=== PATIENT | female | born 1945 | race Caucasian/White ===

== ENCOUNTER 2020-05-16 20:19 | Inpatient (IN) | payer MEDICARE, OTHER ==
[~2020-05-16] VITALS: Ht 170.2 cm; Wt 79.3 kg
--- NOTE | 2020-05-16 20:40 | ED General ---
General Stated Complaint: COVID+,DEHYDRATED,VOMITING,DIZZY History of Present Illness Date Seen by Provider: May 16, 2020 Time Seen by Provider: 20:37 Initial Comments 74-year-old female presents with generalized weakness and malaise and some chest tightness with shortness of air for the past couple days. States she was diagnosed with COVID-19, 4 days ago at an urgent care clinic, but was not placed on any medication and advised to follow-up if she got worse. She does say she has been taking vitamin C, vitamin D and zinc supplements. Denies history of heart or lung problems. Allergies and Home Medications Allergies Coded Allergies: No Known Drug Allergies (Unverified , 05/16/20) Patient Home Medication List Home Medication List Reviewed: Yes Review of Systems Review of Systems Constitutional: No chills, No fever; malaise, weakness Respiratory: No cough; short of breath Cardiovascular: chest pain (tightness) Gastrointestinal: No abdominal pain; loss of appetite, nausea; No vomiting Musculoskeletal: No back pain, No neck pain Psychiatric/Neurological: Denies Headache, Denies Numbness, Denies Paresthesia, Denies Seizure Past Swgunch-Kmkxuo-Doqqnw Hx Past Med/Social Hx: Reviewed Nursing Past Med/Soc Hx Physical Exam Vital Signs Vital Signs - First Documented 05/16/20 20:28 Temp 36.6 Pulse 76 Resp 20 B/P (MAP) 176/71 (106) Pulse Ox 88 O2 Delivery Room Air Capillary Refill : Height, Weight, BMI Height: '" Weight: lbs. oz. kg; BMI Method: General Appearance: No Apparent Distress, WD/WN HEENT: PERRL/EOMI, Normal ENT Inspection Neck: Non Tender, Supple Respiratory: Chest Non Tender, Lungs Clear, Normal Breath Sounds, No Accessory Muscle Use, No Respiratory Distress Cardiovascular: Regular Rate, Rhythm, No Edema, Normal Peripheral Pulses Gastrointestinal: Non Tender, Soft Back: Normal Inspection, No CVA Tenderness Extremity: Normal Capillary Refill, Non Tender Neurologic/Psychiatric: Alert, Oriented x3, No Motor/Sensory Deficits, Normal Mood/Affect Focused Exam Lactate Level 05/16/20 21:01: Lactic Acid Level Laboratory Tests Test 05/16/20 21:01 Progress/Results/Core Measures Suspected Sepsis SIRS Temperature: Pulse: Respiratory Rate: Laboratory Tests 05/16/20 20:37: White Blood Count 8.0 Blood Pressure / Mean: 05/16/20 21:01: Laboratory Tests 05/16/20 20:37: Creatinine 0.88, Platelet Count 157, Total Bilirubin 1.0 Results/Orders Lab Results Laboratory Tests Test 05/16/20 20:37 05/16/20 21:01 Range/Units White Blood Count 8.0 4.3-11.0 10^3/uL Red Blood Count 4.77 4.35-5.85 10^6/uL Hemoglobin 13.4 11.5-16.0 G/DL Hematocrit 40 35-52 % Mean Corpuscular Volume 83 80-99 FL Mean Corpuscular Hemoglobin 28 25-34 PG Mean Corpuscular Hemoglobin Concent 34 32-36 G/DL Red Cell Distribution Width 13.4 10.0-14.5 % Platelet Count 157 130-400 10^3/uL Mean Platelet Volume 10.7 H 7.4-10.4 FL Immature Granulocyte % (Auto) 0 % Neutrophils (%) (Auto) 82 H 42-75 % Lymphocytes (%) (Auto) 14 12-44 % Monocytes (%) (Auto) 4 0-12 % Eosinophils (%) (Auto) 0 0-10 % Basophils (%) (Auto) 0 0-10 % Neutrophils # (Auto) 6.6 1.8-7.8 X 10^3 Lymphocytes # (Auto) 1.1 1.0-4.0 X 10^3 Monocytes # (Auto) 0.3 0.0-1.0 X 10^3 Eosinophils # (Auto) 0.0 0.0-0.3 10^3/uL Basophils # (Auto) 0.0 0.0-0.1 10^3/uL Immature Granulocyte # (Auto) 0.0 0.0-0.1 10^3/uL D-Dimer 1.26 H 0.00-0.49 UG/ML Sodium Level 132 L 135-145 MMOL/L Potassium Level 4.0 3.6-5.0 MMOL/L Chloride Level 95 L 98-107 MMOL/L Carbon Dioxide Level 22 21-32 MMOL/L Anion Gap 15 H 5-14 MMOL/L Blood Urea Nitrogen 14 7-18 MG/DL Creatinine 0.88 0.60-1.30 MG/DL Estimat Glomerular Filtration Rate > 60 BUN/Creatinine Ratio 16 Glucose Level 151 H 70-105 MG/DL Calcium Level 9.0 8.5-10.1 MG/DL Corrected Calcium 9.0 8.5-10.1 MG/DL Total Bilirubin 1.0 0.1-1.0 MG/DL Aspartate Amino Transf (AST/SGOT) 18 5-34 U/L Alanine Aminotransferase (ALT/SGPT) 7 0-55 U/L Alkaline Phosphatase 60 40-136 U/L Troponin I < 0.30 <0.30 NG/ML C-Reactive Protein 19.46 H <0.50 MG/DL Total Protein 7.3 6.4-8.2 GM/DL Albumin 4.0 3.2-4.5 GM/DL My Orders Orders - RICHARDVENSTLINDSAY RAIN DO Ed Iv/Invasive Line Start (05/16/20 20:40) Cbc With Automated Diff (05/16/20 20:40) Comprehensive Metabolic Panel (05/16/20 20:40) Fibrin Degradation Products (05/16/20 20:40) Crp Fs (05/16/20 20:40) Lactic Acid Analyzer (05/16/20 20:40) Troponin I Fs (05/16/20 20:40) Procalcitonin (Pct) (05/16/20 20:40) Chest 1 View Ap/Pa Only (05/16/20 20:40) Dexamethasone Injection (Decadron Inje (05/16/20 20:45) Ekg Tracing (05/16/20 20:52) Covid-19 External Lab Results (05/16/20 21:11) Aspirin Chewable Tablet (Baby Aspirin Ch (05/16/20 21:30) Azithromycin Injection (Zithromax Inject (05/16/20 21:30) Medications Given in ED Current Medications Medications Dose Ordered Sig/Wilfred Route Start Time Stop Time Status Last Admin Dose Admin Dexamethasone Sodium Phosphate 10 mg ONCE ONCE IV 05/16/20 20:45 05/16/20 20:46 DC 05/16/20 21:06 10 MG Vital Signs/I&O 05/16/20 20:28 Temp 36.6 Pulse 76 Resp 20 B/P (MAP) 176/71 (106) Pulse Ox 88 O2 Delivery Room Air Capillary Refill : ECG Initial ECG Impression Date: May 16, 2020 Initial ECG Impression Time: 20:40 Initial ECG Rate: 70 Initial ECG Rhythm: Normal Sinus Initial ECG Impression: Normal Initial ECG Comparisson: No Previous ECG Available Comment old inferior infarct Diagnostic Imaging Comments INDICATION: Hypoxia, shortness of air, positive Covid. FINDINGS: Frontal view of the chest demonstrates bibasilar infiltrates. The heart size and vascularity are normal. There are no pleural effusions. IMPRESSION: There are bibasilar infiltrates, right greater than left. Dictated by: Dictated on workstation # [id number] Dict: 05/16/202053 Trans: 05/16/202104 [facility] [id number] Interpreted by: MARIBEL LOPEZ MD Electronically signed by: MARIBEL LOPEZ MD 05/16/202104 Departure Communication (Admissions) Time/Spoke to Admitting Phy: 21:[address] Mcneal and she accepts Impression Primary Impression: Hypoxia Additional Impression: Pneumonia due to COVID-19 virus Disposition: 30 STILL A PATIENT Condition: Stable Admissions Decision to Admit Reason: Admit from ER (General) Decision to Admit/Date: May 16, 2020 Time/Decision to Admit Time: 21:00 Departure-Patient Inst. Referrals: VERA MCNEAL MD (PCP/Family) Primary Care Physician LINDSAY HUTCHINSON DO May 16, 2020 20:40
[2020-05-16 20:49] LABS: HEMATOCRIT 40 % (35-52); HEMOGLOBIN 13.4 G/DL (11.5-16.0); MEAN CORPUSCULAR HEMOGLOBIN 28 PG (25-34); MEAN CORPUSCULAR VOLUME 83 FL (80-99)
[2020-05-16 20:51] LABS: BASOPHILS % (AUTO) 0 % (0-10); EOSINOPHILS % (AUTO) 0 % (0-10); LYMPHOCYTES # (AUTO) 1.1 X 10^3 (1.0-4.0); LYMPHOCYTES % (AUTO) 14 % (12-44); MEAN CORPUSCULAR HGB CONC 34 G/DL (32-36); MEAN PLATELET VOLUME 10.7 FL (7.4-10.4); MONOCYTES # (AUTO) 0.3 X 10^3 (0.0-1.0); MONOCYTES % (AUTO) 4 % (0-12); NEUTROPHILS # (AUTO) 6.6 X 10^3 (1.8-7.8); NEUTROPHILS % (AUTO) 82 % (42-75); PLATELET COUNT 157 10^3/uL (130-400)
--- NOTE | 2020-05-16 21:02 | Diagnostic Imaging Report ---
INDICATION: Hypoxia, shortness of air, positive Covid. FINDINGS: Frontal view of the chest demonstrates bibasilar infiltrates. The heart size and vascularity are normal. There are no pleural effusions. IMPRESSION: There are bibasilar infiltrates, right greater than left. Dictated by: Dictated on workstation # [id number]
[2020-05-16 21:07] LABS: BUN/CREATININE RATIO 16; CARBON DIOXIDE 22 MMOL/L (21-32); CHLORIDE 95 MMOL/L (98-107); CREATININE SERUM 0.88 MG/DL (0.60-1.30); GFR ESTIMATED > 60; SODIUM 132 MMOL/L (135-145)
[2020-05-16 21:08] LABS: ALANINE AMINOTRANSFERASE 7 U/L (0-55); ALKALINE PHOSPHATASE 60 U/L (40-136); GLUCOSE 151 MG/DL (70-105); TOTAL PROTEIN 7.3 GM/DL (6.4-8.2)
[2020-05-16] MEDS ORDERED: ASPIRIN 81 MG CHEW (CHILDREN'S ASA) PO ONE (21:30)
[2020-05-16] MEDS ORDERED: AZITHROMYCIN INJECTION 500 MG in NS (IVPB) 250 ML IV ONE (21:30)
[2020-05-16 23:35] VITALS: BP 126/58
[2020-05-17] VITALS (7 sets, daily range): BP systolic 139–176; BP diastolic 66–78
[2020-05-17] MEDS ORDERED: RT-ALBUTEROL INHALER HFA (VENTOLIN HFA) 18 GM IH PRN ×2 (03:30→17:00)
[2020-05-17 06:32] LABS: BASOPHILS % (AUTO) 0 % (0-10); EOSINOPHILS % (AUTO) 0 % (0-10); HEMATOCRIT 40 % (35-52); HEMOGLOBIN 13.5 g/dL (11.5-16.0); LYMPHOCYTES # (AUTO) 0.8 10^3/uL (1.0-4.0); LYMPHOCYTES % (AUTO) 16 % (12-44); MEAN CORPUSCULAR HEMOGLOBIN 28 pg (25-34); MEAN CORPUSCULAR HGB CONC 34 g/dL (32-36); MEAN CORPUSCULAR VOLUME 84 fL (80-99); MEAN PLATELET VOLUME 10.8 fL (9.0-12.2); MONOCYTES # (AUTO) 0.1 10^3/uL (0.0-1.0); MONOCYTES % (AUTO) 2 % (0-12); NEUTROPHILS % (AUTO) 82 % (42-75); PLATELET COUNT 139 10^3/uL (130-400); WHITE BLOOD COUNT 4.9 10^3/uL (4.3-11.0)
[2020-05-17 06:46] LABS: ALBUMIN 3.7 GM/DL (3.2-4.5); POTASSIUM 4.3 MMOL/L (3.6-5.0)
[2020-05-17 06:47] LABS: CALCIUM 9.2 MG/DL (8.5-10.1)
[2020-05-17 06:48] LABS: TOTAL PROTEIN 7.4 GM/DL (6.4-8.2)
[2020-05-17 06:50] LABS: BILIRUBIN,TOTAL 0.9 MG/DL (0.1-1.0)
[2020-05-17 06:52] LABS: CREATININE SERUM 0.92 MG/DL (0.60-1.30)
[2020-05-17] MEDS: ASPIRIN E.C. 325 MG (ECOTRIN) TABLET PO SCH (08:46)
[2020-05-17] MEDS ORDERED: REMDESIVIR INJ 200 MG in NS (IVPB) 210 ML IV NR (11:00)
[2020-05-17] MEDS ORDERED: CALC-250 PO (14:22)
[2020-05-17] MEDS ORDERED: LISI-556 PO (14:22)
[2020-05-17] MEDS ORDERED: ASCO500C17 PO (14:22)
[2020-05-17] MEDS ORDERED: ZINC50TA51 PO (14:22)
[2020-05-17] MEDS ORDERED: SIMV40TA25 PO (14:22)
--- NOTE | 2020-05-17 14:23 | NUR ---
I SPOKE WITH THE PATIENT ON THE ROOM PHONE AND WENT THROUGH THE EXTERNAL MED HISTORY TO COMPLETE THIS MED REC. OTC: TYLENOL ZINC VITAMIN C VITAMIN D
[2020-05-17] MEDS ORDERED: ACET-2267 PO (14:24)
--- NOTE | 2020-05-17 14:38 | NUR ---
"RD ASSESSMENT PMHx: HTN; PT INTERACTION: Received dietary consult for MST score. Note pt is currently in COVID isolation per chart review. Note all diet information for nutrition consult is per Mariah RN or per chart review. Mariah states current appetite appears good. Note no meals have been recorded per chart review. Mariah states no issues with n/v/c/d that she is aware of, and that her last BM was 05/15. Note pt not currently on bowel regimen per chart review. Note unable to determine recent wt hx, per chart review. Note unable to complete visual assessment d/t isolation precautions. Given PO intake and wt hx, it is difficult to determine if pt meets criteria for malnutrition per ASPEN guidelines. Est. kcal needs: 8121-8908 kcal | 20-25 kcal/kg Est. Pro needs: 63-79 g Pro | 0.8-1.0 g Pro/kg PES STATEMENT: Unable to determine nutrition diagnosis at this time. INTERVENTION: Continue with current diet order of Regular diet. Will continue to follow and reassess as pt needs, intake, and status change. Nadine ANTONIO MS RD LD [phone] cell"
[2020-05-17] MEDS: RT-ALBUTEROL INHALER HFA (VENTOLIN HFA) 18 GM IH SCH (15:15)
[2020-05-17] MEDS: AZITHROMYCIN 500 MG/NS 250 ML IVPB IV SCH ×2 (20:07)
--- NOTE | 2020-05-17 20:46 | History & Physical ---
HPI History of Present Illness: 74 yo F that presented with increasing shortness of breath and fatigue. States that her had symptoms about 10 days ago and tested positive. States that she started feeling ill last week and came in and tested positive on friday. Denies any fever or chills. Started having shortness of breath on Friday that progressed. She has still been eating and drinking. No loss of taste or smell. She would like to go home today but she is still requiring oxygen. Source: patient Exam Limitations: no limitations Date seen by provider: May 17, 2020 Time Seen by Provider: 11:30 Attending Physician Vera George MD PCP Vera George MD Consult Date of Admission May 16, 2020 at 21:20 Home Medications Home Medications Reviewed patient Home Medication Reconciliation performed by pharmacy medication reconciliations document management technician and/or nursing. Patients Allergies have been reviewed. Allergies Coded Allergies: No Known Drug Allergies (Unverified , 05/16/20) [facility]-Gxcccb-Qdeonm Hx Patient Social History Living Status: Lives at home with , Independent Smoking Status: Never a Smoker Have you traveled recently?: No Immunizations Up To Date Date of Influenza Vaccine: Feb 05, 2021 Past Medical History HTN HLD Family Medical History Significant Family History: No Pertinent Family Hx Review of Systems (CHC) Constitutional: No chills, No fever; weakness EENTM: no symptoms reported; No mouth pain, No mouth swelling, No nose congestion Respiratory: cough, dyspnea on exertion, short of breath Cardiovascular: no symptoms reported; No chest pain, No edema, No palpitations Gastrointestinal: no symptoms reported; No abdominal pain, No constipation, No diarrhea, No nausea, No vomiting Genitourinary: no symptoms reported; No dysuria, No frequency, No hematuria : No Musculoskeletal: no symptoms reported; No back pain, No joint pain, No muscle pain Skin: no symptoms reported; No lesions, No rash Psychiatric/Neurological: Weakness Reviewed Test Results Reviewed Test Results Lab Laboratory Tests Test 05/16/20 20:37 05/16/20 21:01 05/17/20 06:10 Range/Units White Blood Count 8.0 4.9 4.3-11.0 10^3/uL Red Blood Count 4.77 4.80 3.80-5.11 10^6/uL Hemoglobin 13.4 13.5 11.5-16.0 g/dL Hematocrit 40 40 35-52 % Mean Corpuscular Volume 83 84 80-99 fL Mean Corpuscular Hemoglobin 28 28 25-34 pg Mean Corpuscular Hemoglobin Concent 34 34 32-36 g/dL Red Cell Distribution Width 13.4 13.3 10.0-14.5 % Platelet Count 157 139 130-400 10^3/uL Mean Platelet Volume 10.7 H 10.8 9.0-12.2 fL Immature Granulocyte % (Auto) 0 0 % Neutrophils (%) (Auto) 82 H 82 H 42-75 % Lymphocytes (%) (Auto) 14 16 12-44 % Monocytes (%) (Auto) 4 2 0-12 % Eosinophils (%) (Auto) 0 0 0-10 % Basophils (%) (Auto) 0 0 0-10 % Neutrophils # (Auto) 6.6 4.0 1.8-7.8 10^3/uL Lymphocytes # (Auto) 1.1 0.8 L 1.0-4.0 10^3/uL Monocytes # (Auto) 0.3 0.1 0.0-1.0 10^3/uL Eosinophils # (Auto) 0.0 0.0 0.0-0.3 10^3/uL Basophils # (Auto) 0.0 0.0 0.0-0.1 10^3/uL Immature Granulocyte # (Auto) 0.0 0.0 0.0-0.1 10^3/uL D-Dimer 1.26 H 0.00-0.49 UG/ML Sodium Level 132 L 136 135-145 MMOL/L Potassium Level 4.0 4.3 3.6-5.0 MMOL/L Chloride Level 95 L 101 98-107 MMOL/L Carbon Dioxide Level 22 24 21-32 MMOL/L Anion Gap 15 H 11 5-14 MMOL/L Blood Urea Nitrogen 14 18 7-18 MG/DL Creatinine 0.88 0.92 0.60-1.30 MG/DL Estimat Glomerular Filtration Rate > 60 60 BUN/Creatinine Ratio 16 20 Glucose Level 151 H 202 H 70-105 MG/DL Calcium Level 9.0 9.2 8.5-10.1 MG/DL Corrected Calcium 9.0 9.4 8.5-10.1 MG/DL Total Bilirubin 1.0 0.9 0.1-1.0 MG/DL Aspartate Amino Transf (AST/SGOT) 18 21 5-34 U/L Alanine Aminotransferase (ALT/SGPT) 7 11 0-55 U/L Alkaline Phosphatase 60 63 40-136 U/L Troponin I < 0.30 <0.30 NG/ML C-Reactive Protein 19.46 H <0.50 MG/DL Total Protein 7.3 7.4 6.4-8.2 GM/DL Albumin 4.0 3.7 3.2-4.5 GM/DL Procalcitonin 0.19 H <0.10 NG/ML Lactic Acid Level 1.05 0.50-2.00 MMOL/L Physical Exam-(CHC) Physical Exam Vital Signs VS - Last 72 Hours, by Label 05/16/20 05/16/20 05/16/20 05/17/20 20:28 22:01 23:35 03:16 Temp 36.6 35.6 Pulse 76 80 62 76 Resp 20 22 18 B/P (MAP) 176/71 (106) 114/56 126/58 (80) Pulse Ox 88 93 97 88 O2 Delivery Room Air Nasal Cannula Nasal Cannula O2 Flow Rate 3.00 3.00 FiO2 21 05/17/20 05/17/20 05/17/20 05/17/20 04:15 08:00 08:32 09:11 Temp 35.6 35.6 Pulse 61 56 Resp 18 20 B/P (MAP) 139/68 (91) 141/66 (91) Pulse Ox 96 94 92 O2 Delivery Nasal Cannula Nasal Cannula Nasal Cannula Nasal Cannula O2 Flow Rate 3.00 3.00 3.00 3.00 05/17/20 05/17/20 05/17/20 05/17/20 12:29 14:06 15:55 19:32 Temp 36.2 36.6 36.4 36.4 Pulse 61 76 65 62 Resp 18 20 20 B/P (MAP) 148/72 (97) 151/78 (102) 148/72 (97) Pulse Ox 94 88 95 94 O2 Delivery Nasal Cannula Nasal Cannula Nasal Cannula O2 Flow Rate 3.00 3.00 3.00 FiO2 21 Capillary Refill : Less Than 3 Seconds General Appearance: WD/WN, no apparent distress HEENT: PERRL/EOMI Neck: non-tender, full range of motion, supple Respiratory: chest non-tender, lungs clear, normal breath sounds, no respiratory distress, no accessory muscle use Cardiovascular: normal peripheral pulses, regular rate, rhythm, no edema, no murmur Gastrointestinal: normal bowel sounds, non tender, soft Extremities: normal range of motion, non-tender, normal inspection, no pedal edema, no calf tenderness, normal capillary refill Neurologic/Psychiatric: health aid II-XII nml as tested, no motor/sensory deficits, alert, normal mood/affect, oriented x 3 Skin: normal color, warm/dry Lymphatic: no adenopathy Assessment/Plan Assessment/Plan Admission Status: Inpatient Order (span 2 midnights) Reason for Inpatient Admission: Requiring supplemental oxygen and close monitoring, high risk for decompensation (1) COVID-19 Status: Acute Assessment & Plan: - Steroids and Anti viral started (2) Hypoxia Status: Acute Assessment & Plan: - MAT protocol, titrate oxygen as tolerated, encouraged IS (3) Elevated d-dimer Status: Acute (4) HTN (hypertension) Status: Chronic Assessment & Plan: - Continue home meds Qualifiers: Qualified Codes: I10 - Essential (primary) hypertension (5) HLD (hyperlipidemia) Status: Chronic Qualifiers: Qualified Codes: E78.5 - Hyperlipidemia, unspecified (6) DVT prophylaxis Status: Acute Assessment & Plan: - Wipsternox Copy Copies To 1: VERA GEORGE MD, HOLLY R MD May 17, 2020 20:46
[2020-05-17] MEDS: SIMvastatin 40 MG (ZOCOR) TAB PO SCH (21:54)
[2020-05-18 00:28] VITALS: BP 131/70
[2020-05-18 03:48] VITALS: BP 136/67
[2020-05-18 06:39] LABS: BASOPHILS % (AUTO) 0 % (0-10); EOSINOPHILS % (AUTO) 0 % (0-10); HEMATOCRIT 36 % (35-52); HEMOGLOBIN 12.2 g/dL (11.5-16.0); LYMPHOCYTES % (AUTO) 11 % (12-44); MEAN CORPUSCULAR HEMOGLOBIN 28 pg (25-34); MEAN CORPUSCULAR HGB CONC 34 g/dL (32-36); MEAN CORPUSCULAR VOLUME 82 fL (80-99); MEAN PLATELET VOLUME 11.3 fL (9.0-12.2); MONOCYTES # (AUTO) 0.4 10^3/uL (0.0-1.0); MONOCYTES % (AUTO) 5 % (0-12); NEUTROPHILS % (AUTO) 84 % (42-75); PLATELET COUNT 177 10^3/uL (130-400); WHITE BLOOD COUNT 8.4 10^3/uL (4.3-11.0)
[2020-05-18 06:52] LABS: CHLORIDE 105 MMOL/L (98-107); POTASSIUM 4.1 MMOL/L (3.6-5.0); SODIUM 139 MMOL/L (135-145)
[2020-05-18 06:53] LABS: CALCIUM 8.7 MG/DL (8.5-10.1); GLUCOSE 173 MG/DL (70-105)
[2020-05-18 06:55] LABS: CARBON DIOXIDE 23 MMOL/L (21-32)
[2020-05-18 06:57] LABS: CREATININE SERUM 0.86 MG/DL (0.60-1.30); GFR ESTIMATED > 60
[2020-05-18 06:58] LABS: BUN/CREATININE RATIO 31
[2020-05-18] MEDS: lisINopril 5 MG (PRINIVIL) TABLET PO SCH (07:59)
[2020-05-18] MEDS: ASPIRIN E.C. 325 MG (ECOTRIN) TABLET PO SCH (07:59)
[2020-05-18 08:00] VITALS: BP 173/77
[2020-05-18] MEDS: RT-ALBUTEROL INHALER HFA (VENTOLIN HFA) 18 GM IH SCH ×3 (10:30→18:50)
[2020-05-18] MEDS: REMDESIVIR INJ 100 MG in NS (IVPB) 230 ML IV SCH (11:43)
[2020-05-18 12:00] VITALS: BP 127/60
--- NOTE | 2020-05-18 13:34 | Physical Therapy Evaluation ---
PT Evaluation-General Medical Diagnosis Admission Date May 16, 2020 at 21:20 Medical Diagnosis: pneumonia secondary to Covid (+) Onset Date: May 15, 2020 Therapy Diagnosis Therapy Diagnosis: debility Precautions Precautions/Isolations: Droplet Isolation, Contact/Enteric Isolation Referral Physician: Ariel Reason for Referral: Evaluation/Treatment Medical History Current History ER secondary to SOA and chest pressure Reviewed History: Yes Social History Home: Single Level Current Living Status: Spouse Prior Prior Level of Function SCALE: Activities may be completed with or without assistive devices. 8-Yrlwdzurdy-daebgpf completes the activity by him/herself with no assistance from a helper. 5-Set-up or Clean-up Assistance-helper sets up or cleans up; patient completes activity. Elwell assists only prior to or following the activity. 4-Supervision or Touching Assistance-helper provides verbal cues and/or touching/steadying and/or contact guard assistance as patient completes activity. Assistance may be provided throughout the activity or intermittently. 3-Partial/Moderate Assistance-helper does LESS THAN HALF the effort. Elwell lifts, holds or supports trunk or limbs, but provides less than half the effort. 2-Substantial/Maximal Assistance-helper does MORE THAN HALF the effort. Elwell lifts or holds trunk or limbs and provides more than half the effort. 8-Sztbgglgx-gjfmst does ALL the effort. Patient does none of the effort to complete the activity. Or, the assistance of 2 or more helpers is required for the patient to complete the activity. If activity was not attempted, code reason: 7-Patient Refused. 9-Not Applicable-not attempted and the patient did not perform the activity before the current illness, exacerbation or injury. 10-Not Attempted due to Environmental Limitations-(lack of equipment, weather restraints, etc.). 88-Not Attempted due to Medical Conditions or Safety Concerns. Bed Mobility: 6 Transfers (B,C,W/C): 6 Gait: 6 Stairs: 6 Indoor Mobility (Ambulation): Independent Stairs: Independent Prior Devices Use: None PT Evaluation-Current Subjective Patient states, "I don't therapy. I'm fine. I had just woken up and was a little unsteady. I'm fine now." Does agree to PT assessment for safety. Objective Patient Orientation: Normal For Age Attachments: Oxygen ROM/Strength ROM Lower Extremities bilateral LE wFL Strength Lower Extremities 4/5 grossly bilateral LE Integumentary/Posture Integumentary refer to nursing notes Bowel Incontinence: No Bladder Incontinence: No Posture WFL Neuromuscular (Tone, Coordination, Reflexes) grossly intact Sensory Vision: Functional Hearing: Functional Sensation Right Lower Extremit: Intact Sensation Left Lower Extremity: Intact Transfers Roll Left to Right (QC): 6 Sit to Lying (QC): 6 Lying to Sitting/Side of Bed(Q: 6 Sit to Stand (QC): 6 Chair/Gfg-ov-Spdes Xfer(QC): 6 Gait Does the Patient Walk?: Yes Mode of Locomotion: Walk Anticipated Mode of Locomotion: Walk Walk 10 feet (QC): 6 Walk 50 ft with 2 Turns(QC): 6 Walk 150 ft (QC): 6 Distance: 150' in room Gait Assistive Device: None Comments/Gait Description patient able to negotiate O2 tubing with ambulation in room Balance Sitting Static: Normal Sitting Dynamic: Normal Standing Static: Normal Standing Dynamic: Normal Picking up an Object (QC): 6 Assessment/Needs 74 y.o. female, is currently at [facility] with all gross motor skills and does not require skilled therapy intervention. Patient voices she is safe and up in room independent prior to PT assessment. Rehab Potential: Fair PT Plan Treatment/Plan Treatment Plan: Discontinue PT, goals met Treatment Duration: May 18, 2020 Frequency: 1 time per week Estimated Hrs Per Day: .25 hour per day Discharge Recommendations Therapy Discharge Recommendati: Home & Family Time/GCodes Time In: 1129 Time Out: 1140 Total Billed Treatment Time: 11 Total Billed Treatment 1 visit EVLowC 11 min BELEM HARPER PT May 18, 2020 13:34
--- NOTE | 2020-05-18 13:45 | Physician Query Clarification ---
"Physician Query-General Query to Physician: History/Risk factors: Covid 19 PNA Clinical Findings: cough, dyspnea on exertion, short of breath, RR 18-22, SOA at Rest per nursing on 3L NC, 02 Sat 88% on RA on admission, Currently trending down to 90% on 3L Treatment: Continuous Supplemental 02, Remdesivir, Albuterol Breathing RX, Dexamethasone Question: What condition best reflects the above clinical scenario? Please document response in the Progress notes or Discharge Summary. 1. Acute Hypoxic Respiratory Failure 2. Hypoxia (as currently documented) 3. Other , with explanation of the clinical findings 4. Clinically undetermined, no explanation for the clinical findings Please remember a lack of response to the above will prompt a phone page by CDI/coding staff In responding to this query, please exercise your independent professional judgment. The purpose of this communication is to more accurately reflect the complexity of your patients condition. The fact that a question is asked does not imply that any particular answer is desired or expected. Thank you for timely response to this clarification. Kimberly Thornton, MSN, RN RN Specialist-Clinical Doc Improvement CD -Health Info Mgmt Operations [address] [facility] t: [phone] | f: [phone] If you are unable to reach me at my extension, I may be working from home. Please contact me at [phone] PHYSICIAN RESPONSE: Based on the clinical findings in the record, please respond to the query above on this document as an addendum. Physician Response: Physician Response 1 If you have questions please contact: Import Manager: Ext: Thank you for your time and cooperation. Clinical Prototype Engineer Manager/Import Manager This is a permanent part of the medical record KIMBERLY THORNTON May 18, 2020 13:45 VERA MCNEAL MD May 18, 2020 21:22"
[2020-05-18 15:53] VITALS: BP 115/56
--- NOTE | 2020-05-18 20:04 | Progress Note ---
Subjective Subjective/Events-last exam Patient states that she is feeling weaker today. Decreased appetite. Breathing unchanged Review of Systems Pulmonary: Dyspnea Cardiovascular: No: Chest Pain, Palpitations Gastrointestinal: No: Nausea, Vomiting Neurological: Weakness, Incoordination Focused Exam Lactate Level 05/16/20 21:01: Lactic Acid Level 1.05 Objective Exam Last Set of Vital Signs Vital Signs Date Time Temp Pulse Resp B/P (MAP) Pulse Ox O2 Delivery O2 Flow Rate FiO2 05/18/20 18:50 95 Nasal Cannula 1.00 05/18/20 15:53 36.2 66 20 115/56 (75) 05/17/20 14:06 21 Capillary Refill : Less Than 3 Seconds I&O Intake and Output 05/17/20 23:59 Intake Total 2110 ml Balance 2110 ml Intake Oral 2110 ml # Voids 7 General: Alert, Oriented X3, No Acute Distress Lungs: Clear to Auscultation, Normal Air Movement Heart: Regular Rate, No Murmurs Abdomen: Soft, No Tenderness, No Masses Extremities: No Edema, No Tenderness/Swelling Neuro: Normal Speech, Sensation Intact, Cranial Nerves 3-12 NL Results/Procedures Lab Laboratory Tests 05/18/20 06:25: White Blood Count 8.4, Red Blood Count 4.38, Hemoglobin 12.2, Hematocrit 36, Mean Corpuscular Volume 82, Mean Corpuscular Hemoglobin 28, Mean Corpuscular Hemoglobin Concent 34, Red Cell Distribution Width 13.2, Platelet Count 177, Mean Platelet Volume 11.3, Immature Granulocyte % (Auto) 0, Neutrophils (%) (Auto) 84H, Lymphocytes (%) (Auto) 11L, Monocytes (%) (Auto) 5, Eosinophils (%) (Auto) 0, Basophils (%) (Auto) 0, Neutrophils # (Auto) 7.0, Lymphocytes # (Auto) 1.0, Monocytes # (Auto) 0.4, Eosinophils # (Auto) 0.0, Basophils # (Auto) 0.0, Immature Granulocyte # (Auto) 0.0, Sodium Level 139, Potassium Level 4.1, Chloride Level 105, Carbon Dioxide Level 23, Anion Gap 11, Blood Urea Nitrogen 27H, Creatinine 0.86, Estimat Glomerular Filtration Rate > 60, BUN/Creatinine Ratio 31, Glucose Level 173H, Calcium Level 8.7 Assessment/Plan Assessment/Plan (1) COVID-19 Status: Acute Assessment & Plan: - Steroids and Anti viral started (2) Hypoxia Status: Acute Assessment & Plan: - MAT protocol, titrate oxygen as tolerated, encouraged IS (3) Elevated d-dimer Status: Acute (4) HTN (hypertension) Status: Chronic Assessment & Plan: - Continue home meds Qualifiers: Qualified Codes: I10 - Essential (primary) hypertension (5) HLD (hyperlipidemia) Status: Chronic Qualifiers: Qualified Codes: E78.5 - Hyperlipidemia, unspecified (6) DVT prophylaxis Status: Acute Assessment & Plan: - Lovenox (7) Debility Status: Acute Assessment & Plan: 05/18: PT added today VERA MCNEAL MD May 18, 2020 20:04
[2020-05-18] MEDS ORDERED: ENOXAPARIN 40 MG/0.4 ML (LOVENOX) SYR SC SCH (20:15)
[2020-05-18] MEDS: AZITHROMYCIN 500 MG/NS 250 ML IVPB IV SCH ×2 (21:14)
[2020-05-18] MEDS: SIMvastatin 40 MG (ZOCOR) TAB PO SCH (21:14)
[2020-05-19 00:27] VITALS: BP 131/70
[2020-05-19] MEDS: RT-ALBUTEROL INHALER HFA (VENTOLIN HFA) 18 GM IH SCH ×3 (01:51→15:23)
[2020-05-19 08:00] VITALS: BP 151/72
[2020-05-19] MEDS: ASPIRIN E.C. 325 MG (ECOTRIN) TABLET PO SCH (09:12)
[2020-05-19] MEDS: lisINopril 5 MG (PRINIVIL) TABLET PO SCH (09:12)
[2020-05-19] MEDS: REMDESIVIR INJ 100 MG in NS (IVPB) 230 ML IV SCH (11:46)
--- NOTE | 2020-05-19 13:06 | NUR ---
pt stayed above 93% SpO2 on RA during walk study. Addendum: 05/19/20 at 1306 by LEAH PARKS RT Amended: Links added.
--- NOTE | 2020-05-19 13:27 | NUR ---
CM/SS finalized discharge. Plan: The patient will discharge to home self care today 05/19. The patient did not qualify for home oxygen. CM/SS contacted the patient via room phone. She reports that her ride is currently down stairs and she is feeling well. The patient reports that she is feeling strong and good for discharge. She declined needs at this time.
--- NOTE | 2020-05-19 14:10 | Discharge Summary ---
Diagnosis/Chief Complaint Date of Admission May 16, 2020 at 21:20 Date of Discharge Discharge Diagnosis Problems/Diagnosis: (1) COVID-19 Assessment & Plan: - Steroids and Anti viral started Status: Acute (2) Hypoxia Assessment & Plan: - MAT protocol, titrate oxygen as tolerated, encouraged IS Status: Acute (3) Elevated d-dimer Status: Acute (4) HTN (hypertension) Assessment & Plan: - Continue home meds Qualifiers: Qualified Codes: I10 - Essential (primary) hypertension Status: Chronic (5) HLD (hyperlipidemia) Qualifiers: Qualified Codes: E78.5 - Hyperlipidemia, unspecified Status: Chronic (6) DVT prophylaxis Assessment & Plan: - Lovenox Status: Acute (7) Debility Assessment & Plan: 05/18: PT added today Status: Acute Chief Complaint/HPI Chief Complaint/HPI 74 yo F that presented with increasing shortness of breath and fatigue. States that her had symptoms about 10 days ago and tested positive. States that she started feeling ill last week and came in and tested positive on friday. Denies any fever or chills. Started having shortness of breath on Friday that progressed. She has still been eating and drinking. No loss of taste or smell. S he would like to go home today but she is still requiring oxygen. Discharge Summary-Simple/Stand Consultations Discharge Physical Examination Allergies: Coded Allergies: No Known Drug Allergies (Unverified , 05/16/20) Vitals & I&Os Vital Sign - Last 12Hours Date Time Temp Pulse Resp B/P (MAP) Pulse Ox O2 Delivery O2 Flow Rate FiO2 05/19/20 13:05 66 93 05/19/20 08:00 Room Air 05/19/20 08:00 35.8 18 151/72 (98) 3.00 05/17/20 14:06 21 Intake and Output 05/19/20 00:00 Intake Total 1590 ml Balance 1590 ml Hospital Course See final discharge diagnosis. Discharge Instructions to patient/family Please see electronic discharge instructions given to patient. Discharge Medications Reviewed and agree with Discharge Medication list on patient's Discharge Ins truction sheet VERA MCNEAL MD May 19, 2020 14:10
[2020-05-19] MEDS ORDERED: ASPI-479 PO (14:18)
[2020-05-19] MEDS ORDERED: DEXA2TAB PO (14:18)
--- NOTE | 2020-05-19 14:19 | Discharge Summary ---
Discharge [facility] Reconcile Patient Problems Problems Reviewed?: Yes Discharge Medications New, Converted or Re-Newed RX: Transmitted to Pharmacy New Medications: Aspirin (Adult Low Dose Aspirin EC) 81 Mg Tablet.dr 81 MG PO DAILY, #30 TAB Dexamethasone (Dexamethasone) 2 Mg Tablet 2 MG PO DAILY, #8 TAB 1 tab daily x5 days then 1/2 tab daily x 6 days Continued Medications: Acetaminophen (Tylenol Extra Strength) 500 Mg Tablet 1000 MG PO Q6H PRN for PAIN-MILD (1-4), TAB Ascorbic Acid (Vitamin C) 500 Mg Capsule 500 MG PO DAILY, CAP Cholecalciferol (Vitamin D3) (Vitamin D3) 125 Mcg Tablet 125 MCG PO DAILY, TAB Lisinopril (Lisinopril) 5 Mg Tablet 5 MG PO DAILY, TAB Simvastatin (Simvastatin) 40 Mg Tablet 40 MG PO HS, TAB Zinc Amino Acid Chelate (Zinc) 50 Mg Tablet 50 MG PO DAILY, TAB Patient Instructions Goal/Follow Up Appt: F/u with Ariel next week Patient Instructions: - Make sure to complete your steroid taper - Monitor for any increase in shortness of breath Activity & Diet Discharge Diet: ADA Diet Activity as Tolerated: Yes VERA MCNEAL MD May 19, 2020 14:19
[2020-05-19 15:02] VITALS: BP 151/72
== END 2020-05-19 15:00 | disposition home or self-care (01) | DRG 177 ==
LOC: ER FS 20:22 → 4TH 21:20 → ER FS 22:26
PROVIDERS: ADMIT Family Medicine; ATTEND Family Medicine
DX: U07.1 COVID-19 (principal); J12.82 Pneumonia due to coronavirus disease 2019; J96.01 Acute respiratory failure with hypoxia; I10 Essential (primary) hypertension; E78.5 Hyperlipidemia, unspecified; R53.81 Other malaise; Z73.0 Burn-out
CPT/HCPCS: 36415; 71045; 80048; 80053; 83605; 84145; 84484; 85025; 85379; 86141; 93005; 94640; 94664; 94760; 94761

== ENCOUNTER 2020-11-11 23:20 | Emergency (ER) | payer MEDICARE ==
[~2020-11-11] VITALS: Ht 170.1 cm; Wt 79.3 kg
[~2020-11-11 23:20] MED LIST: ACET-2267 PO; ASCO500C17 PO; ASPI-479 PO; CALC-250 PO; DEXA2TAB PO; LISI-729 PO; SIMV40TA25 PO; ZINC50TA51 PO
[2020-11-11 23:23] VITALS: BP 205/88
--- NOTE | 2020-11-11 23:29 | ED General ---
General Stated Complaint: HYPERTENSION Source of Information: Patient Exam Limitations: No Limitations History of Present Illness Date Seen by Provider: Nov 11, 2020 Time Seen by Provider: 23:25 Initial Comments 75-year-old female presents from home with complaint of not feeling well tonight. States she felt dizzy and weak, so she checked her blood pressure and was little high, so she checked it several more times and it kept getting higher. Decided to come to the ER for evaluation. Past medical history significant for hypertension, she takes lisinopril 5 mg daily. Denies chest pain, shortness of air or spinal extremities. Denies recent illness, fever chills or cough. Denies abdominal pain nausea or vomiting. Patient been she typically does not take her blood pressure and when she does it is typically low. When she checked it tonight and it was elevated she got a little nervous. On arrival states that she had a headache and is getting better because she took Tylenol when she was at home. Feels better resting in the bed. Allergies and Home Medications Allergies Coded Allergies: No Known Drug Allergies (Unverified , 05/16/20) Home Medications Acetaminophen 500 Mg Tablet, 1,000 MG PO Q6H PRN for PAIN-MILD (1-4), (Reported) Ascorbic Acid 500 Mg Capsule, 500 MG PO DAILY, (Reported) Aspirin 81 Mg Tablet.dr, 81 MG PO DAILY Prescribed by: VERA MCNEAL on 05/19/20 1418 Cholecalciferol (Vitamin D3) 125 Mcg Tablet, 125 MCG PO DAILY, (Reported) Dexamethasone 2 Mg Tablet, 2 MG PO DAILY 1 tab daily x5 days then 1/2 tab daily x 6 days Prescribed by: VERA MCNEAL on 05/19/20 1418 Lisinopril 5 Mg Tablet, 5 MG PO DAILY, (Reported) Simvastatin 40 Mg Tablet, 40 MG PO HS, (Reported) Zinc Amino Acid Chelate 50 Mg Tablet, 50 MG PO DAILY, (Reported) Patient Home Medication List Home Medication List Reviewed: Yes Review of Systems Review of Systems Constitutional: dizziness (and shakey) Respiratory: No cough, No short of breath, No stridor, No wheezing Cardiovascular: No chest pain, No edema, No palpitations, No syncope Gastrointestinal: No abdominal pain, No diarrhea, No nausea, No vomiting Musculoskeletal: No back pain, No joint pain Skin: No change in color, No rash Psychiatric/Neurological: Anxiety, Headache; Denies Numbness, Denies Paresthesia, Denies Seizure, Denies Tingling, Denies Tremors; Weakness Past Jjdsqmp-Aahgbr-Zukivq Hx Patient Social History Tobacco Use?: No Alcohol Use?: Yes Alcohol type: Wine Past Medical History Surgeries: No Respiratory: No Cardiac: Yes Hypertension Neurological: No Genitourinary: No Gastrointestinal: No Musculoskeletal: No Endocrine: No HEENT: No Cancer: No Psychosocial: No Integumentary: No Family Medical History No Pertinent Family Hx Physical Exam Vital Signs Vital Signs - First Documented 11/11/20 23:23 Temp 37.0 Pulse 70 Resp 20 B/P (MAP) 205/88 (127) Pulse Ox 96 O2 Delivery Room Air Capillary Refill : Height, Weight, BMI Height: '" Weight: lbs. oz. kg; 27.54 BMI Method: General Appearance: No Apparent Distress, WD/WN Eyes: Bilateral Eye Normal Inspection, Bilateral Eye PERRL, Bilateral Eye EOMI HEENT: PERRL/EOMI, Normal ENT Inspection Neck: Non Tender, Supple Respiratory: Chest Non Tender, Lungs Clear, Normal Breath Sounds Cardiovascular: Regular Rate, Rhythm, No Edema, No JVD Gastrointestinal: Non Tender, Soft Back: Normal Inspection, No CVA Tenderness Extremity: Normal Capillary Refill, Normal Inspection, Normal Range of Motion, Non Tender, No Calf Tenderness Neurologic/Psychiatric: Alert, Oriented x3, No Motor/Sensory Deficits, Normal Mood/Affect Skin: Normal Color, Warm/Dry Progress/Results/Core Measures Suspected Sepsis SIRS Temperature: Pulse: Respiratory Rate: Laboratory Tests 11/11/20 23:46: White Blood Count 6.5 Blood Pressure / Mean: Laboratory Tests 11/11/20 23:46: Creatinine 0.93, Platelet Count 189, Total Bilirubin 0.9 Results/Orders Lab Results Laboratory Tests Test 11/11/20 23:46 11/11/20 23:50 Range/Units White Blood Count 6.5 4.3-11.0 10^3/uL Red Blood Count 4.62 4.35-5.85 10^6/uL Hemoglobin 12.8 11.5-16.0 G/DL Hematocrit 39 35-52 % Mean Corpuscular Volume 84 80-99 FL Mean Corpuscular Hemoglobin 28 25-34 PG Mean Corpuscular Hemoglobin Concent 33 32-36 G/DL Red Cell Distribution Width 14.6 H 10.0-14.5 % Platelet Count 189 130-400 10^3/uL Mean Platelet Volume 11.0 H 7.4-10.4 FL Immature Granulocyte % (Auto) 0 % Neutrophils (%) (Auto) 48 42-75 % Lymphocytes (%) (Auto) 43 12-44 % Monocytes (%) (Auto) 6 0-12 % Eosinophils (%) (Auto) 2 0-10 % Basophils (%) (Auto) 1 0-10 % Neutrophils # (Auto) 3.1 1.8-7.8 X 10^3 Lymphocytes # (Auto) 2.8 1.0-4.0 X 10^3 Monocytes # (Auto) 0.4 0.0-1.0 X 10^3 Eosinophils # (Auto) 0.1 0.0-0.3 10^3/uL Basophils # (Auto) 0.0 0.0-0.1 10^3/uL Immature Granulocyte # (Auto) 0.0 0.0-0.1 10^3/uL Sodium Level 141 135-145 MMOL/L Potassium Level 3.8 3.6-5.0 MMOL/L Chloride Level 104 98-107 MMOL/L Carbon Dioxide Level 24 21-32 MMOL/L Anion Gap 13 5-14 MMOL/L Blood Urea Nitrogen 16 7-18 MG/DL Creatinine 0.93 0.60-1.30 MG/DL Estimat Glomerular Filtration Rate 59 BUN/Creatinine Ratio 17 Glucose Level 116 H 70-105 MG/DL Calcium Level 9.2 8.5-10.1 MG/DL Corrected Calcium 9.1 8.5-10.1 MG/DL Total Bilirubin 0.9 0.1-1.0 MG/DL Aspartate Amino Transf (AST/SGOT) 17 5-34 U/L Alanine Aminotransferase (ALT/SGPT) 11 0-55 U/L Alkaline Phosphatase 67 40-136 U/L Troponin I < 0.30 <0.30 NG/ML Total Protein 6.8 6.4-8.2 GM/DL Albumin 4.1 3.2-4.5 GM/DL Urine Color PALE YELLOW Urine Clarity CLEAR Urine pH 7.5 5-9 Urine Specific [place] 1.015 L 1.016-1.022 Urine Protein NEGATIVE NEGATIVE Urine Glucose (UA) NEGATIVE NEGATIVE Urine Ketones NEGATIVE NEGATIVE Urine Nitrite NEGATIVE NEGATIVE Urine Bilirubin NEGATIVE NEGATIVE Urine Urobilinogen 0.2 < = 1.0 MG/DL Urine Leukocyte Esterase NEGATIVE NEGATIVE Urine RBC (Auto) TRACE H NEGATIVE Urine RBC 0-2 /HPF Urine WBC NONE /HPF Urine Squamous Epithelial Cells NONE /HPF Urine Crystals NONE /LPF Urine Bacteria NEGATIVE /HPF Urine Casts NONE /LPF Urine Mucus NEGATIVE /LPF Urine Culture Indicated NO My Orders Orders - LINDSAY HUTCHINSON DO Ed Iv/Invasive Line Start (11/11/20 23:35) Cbc With Automated Diff (11/11/20 23:35) Comprehensive Metabolic Panel (11/11/20 23:35) Urinalysis (11/11/20 23:35) Ekg Tracing (11/11/20 23:35) Troponin I Fs (11/11/20 23:35) Vital Signs/I&O 11/11/20 23:23 Temp 37.0 Pulse 70 Resp 20 B/P (MAP) 205/88 (127) Pulse Ox 96 O2 Delivery Room Air Capillary Refill : Progress Note : Progress Note feeling better, no distress, headache resolved. NO chest pain or soa. REviewed labs and ECG- no change from previous. Reassurance given, advised periodic BP checks, not episodic and f/u w PCP in 1 week, ER sooner if worse DC BP 160 systolic ECG Initial ECG Impression Date: Nov 12, 2020 Initial ECG Impression Time: 23:40 Initial ECG Rate: 61 Initial ECG Rhythm: Normal Sinus Initial ECG Intervals: Normal Initial ECG Impression: Normal Initial ECG Comparisson: Unchanged (from comparison ECG 05/16/2020) Comment old inf infarct Departure Impression Primary Impression: HTN (hypertension) Qualified Codes: I10 - Essential (primary) hypertension Disposition: 01 HOME, SELF-CARE Condition: Improved Departure-Patient Inst. Decision time for Depature: 00:20 Referrals: VERA MCNEAL MD (PCP/Family) Primary Care Physician Patient Instructions: High Blood Pressure (DC) Add. Discharge Instructions: continue current medications and check your blood pressure 3 times weekly (at random times). Take these readings with you to see your doctor in 1 week. Do not chech your blood pressure when you are anxious, stress or worried. LINDSAY HUTCHINSON DO Nov 11, 2020 23:29
[2020-11-11 23:54] LABS: HEMATOCRIT 39 % (35-52); HEMOGLOBIN 12.8 G/DL (11.5-16.0); MEAN CORPUSCULAR HEMOGLOBIN 28 PG (25-34); MEAN CORPUSCULAR HGB CONC 33 G/DL (32-36); MEAN CORPUSCULAR VOLUME 84 FL (80-99); PLATELET COUNT 189 10^3/uL (130-400); WHITE BLOOD COUNT 6.5 10^3/uL (4.3-11.0)
[2020-11-11 23:55] LABS: BASOPHILS % (AUTO) 1 % (0-10); EOSINOPHILS # (AUTO) 0.1 10^3/uL (0.0-0.3); EOSINOPHILS % (AUTO) 2 % (0-10); LYMPHOCYTES # (AUTO) 2.8 X 10^3 (1.0-4.0); LYMPHOCYTES % (AUTO) 43 % (12-44); MONOCYTES # (AUTO) 0.4 X 10^3 (0.0-1.0); MONOCYTES % (AUTO) 6 % (0-12); NEUTROPHILS # (AUTO) 3.1 X 10^3 (1.8-7.8); NEUTROPHILS % (AUTO) 48 % (42-75)
[2020-11-12 00:07] LABS: BILIRUBIN,URINE NEGATIVE (NEGATIVE); CLARITY,URINE CLEAR; COLOR,URINE PALE YELLOW; GLUCOSE, URINE (UA) NEGATIVE (NEGATIVE); KETONES,URINE NEGATIVE (NEGATIVE); LEUKOCYTE ESTERASE ,URINE NEGATIVE (NEGATIVE); NITRITE,URINE NEGATIVE (NEGATIVE); PH,URINE 7.5 (5-9); PROTEIN,URINE NEGATIVE (NEGATIVE)
[2020-11-12 00:08] LABS: BACTERIA,URINE NEGATIVE /HPF; RBC,URINE 0-2 /HPF
[2020-11-12 00:17] LABS: ALANINE AMINOTRANSFERASE 11 U/L (0-55); ALKALINE PHOSPHATASE 67 U/L (40-136); BILIRUBIN,TOTAL 0.9 MG/DL (0.1-1.0); BUN/CREATININE RATIO 17; CALCIUM 9.2 MG/DL (8.5-10.1); CARBON DIOXIDE 24 MMOL/L (21-32); CHLORIDE 104 MMOL/L (98-107); CREATININE SERUM 0.93 MG/DL (0.60-1.30); GFR ESTIMATED 59; GLUCOSE 116 MG/DL (70-105); POTASSIUM 3.8 MMOL/L (3.6-5.0); SODIUM 141 MMOL/L (135-145); TOTAL PROTEIN 6.8 GM/DL (6.4-8.2)
[2020-11-12 00:18] LABS: ALBUMIN 4.1 GM/DL (3.2-4.5)
== END 2020-11-12 00:22 | disposition home or self-care (01) ==
LOC: EDUNIT# 23:20 → ER FS 23:22
DX: I10 Essential (primary) hypertension (principal); Z79.82 Long term (current) use of aspirin
CPT/HCPCS: 36415; 80053; 81000; 84484; 85025; 93005

== ENCOUNTER 2022-05-15 05:37 | Outpatient (CLI) | payer MEDICARE ==
[~2022-05-15] VITALS: Ht 170.2 cm; Wt 72.8 kg
[~2022-05-15 05:37] MED LIST changes: -LISI-729 PO; +LISI5TAB20 PO
[2022-05-15] MEDS ORDERED: MULT-1136 PO (11:28)
== END 2022-05-15 11:33 | disposition home or self-care (01) ==
LOC: PREOP 05:37
PROVIDERS: ATTEND Surgery
DX: Z01.818 Encounter for other preprocedural examination (principal)

== ENCOUNTER 2022-05-28 07:53 | Day surgery (SDC) | payer MEDICARE ==
[~2022-05-28] VITALS: Ht 170.2 cm; Wt 72.8 kg
[~2022-05-28 07:53] MED LIST changes: +MULT-1136 PO
[2022-05-28] MEDS ORDERED: LACTATED RINGERS 1,000 ML IV STA (08:17)
[2022-05-28 08:20] VITALS: BP 155/77
--- NOTE | 2022-05-28 08:23 | Progress Note-Pre Operative ---
Pre-Operative Progress Note Date of Available H&P: May 06, 2022 Date H&P Reviewed: May 28, 2022 Time H&P Reviewed: 08:23 History & Physical: H&P Reviewed, Patient Examed, No changes noted Pre-Operative Diagnosis: hx polyps, family history colon ca RADHA MOHAN DO May 28, 2022 08:23
[2022-05-28] MEDS ORDERED: LACTATED RINGERS 1,000 ML IV ONE (09:12)
[2022-05-28] MEDS ORDERED: PROPOFOL INJECTION 50 ML IV ONE (10:49)
--- NOTE | 2022-05-28 11:18 | Anesthesia-General Post-Op ---
MAC Patient Condition Mental Status/LOC: Same as Preop Cardiovascular: Satisfactory Nausea/Vomiting: Absent Respiratory: Satisfactory Pain: Controlled Complications: Absent Post Op Complications Complications None Follow Up Care/Instructions Patient Instructions None needed. Anesthesiology Discharge Order Discharge Order Patient is doing well, no complaints, stable vital signs, no apparent adverse anesthesia problems. No complications reported per nursing. DMITRY MURRAY CRNA May 28, 2022 11:18
--- NOTE | 2022-05-28 11:19 | Discharge Inst-Simple/Standard ---
Discharge Inst-Standard Patient Instructions/Follow Up Plan of Care/Instructions/FU: No need for another coloscopy due to age f/u if concerns at the time Activity as Tolerated: Yes Discharge Diet: Regular Diet (high fiber ) RADHA MOHAN DO May 28, 2022 11:19
[2022-05-28 11:20] VITALS: BP 104/54
[2022-05-28 11:25] VITALS: BP 106/57
[2022-05-28 11:40] VITALS: BP 128/68
--- NOTE | 2022-05-28 18:35 | OPERATIVE REPORT ---
DATE OF SERVICE: 05/28/2022 PREOPERATIVE DIAGNOSIS: History of polyps, family history of colon cancer. POSTOPERATIVE DIAGNOSIS: Diverticulosis. PROCEDURE: Colonoscopy. ESTIMATED BLOOD LOSS: None. COMPLICATIONS: None. INDICATIONS: The patient is a 76-year-old female with history of polyps and family history of colon cancer. She wishes to have colonoscopy for further evaluation. She understands risks and benefits. Consent was signed on chart. DESCRIPTION OF PROCEDURE: The patient was taken to the endoscopy suite, placed in left lateral recumbent position. Timeout was performed. Digital rectal exam was performed. No palpable polyps, masses or ulcerations. Scope was inserted into the rectum and advanced all the way to the cecum with minimal difficulty. Prep was adequate, with irrigation and suction. Scope was slowly retracted back. No polyps, masses, ulcerations in cecum, ascending, transverse, descending and sigmoid colon. In sigmoid colon, moderate amount of diverticulosis present. Scope was slowly retracted back to the rectum where it was also retroflexed. Some hemorrhoidal disease, noting no other pathology. Scope was returned to its normal position, slowly withdrawn until completely removed. RECOMMENDATIONS: The patient had a repeat colonoscopy on an as-needed basis due to her age. Any symptoms be seen at that time. Otherwise, does not need any further preoperative [ ]. Job ID: [id number] DocumentID: [id number] Dictated Date: 05/28/2022 11:18:08 Monorail Operator Date: 05/28/2022 18:33:00 Dictated By: RADHA MOHAN DO
== END 2022-05-28 11:55 | disposition home or self-care (01) ==
LOC: ENDO 07:53
PROVIDERS: ATTEND Surgery
DX: Z12.11 Encounter for screening for malignant neoplasm of colon (principal); K57.30 Diverticulosis of large intestine without perforation or abscess without bleeding; Z86.010 Personal history of colon polyps; Z80.0 Family history of malignant neoplasm of digestive organs; Z87.891 Personal history of nicotine dependence

== ENCOUNTER 2023-02-24 19:16 | Emergency (ER) | payer MEDICARE ==
[~2023-02-24] VITALS: Ht 170.2 cm; Wt 77.1 kg
[2023-02-24] MEDS ORDERED: ASPIRIN 81 MG CHEWABLE TABLET PO ONE (19:30)
[2023-02-24] MEDS ORDERED: ONDANSETRON INJECTION 4 MG/2 ML (SDV) IVP ONE (19:30)
[2023-02-24] MEDS ORDERED: NS IV 1000 ML 1,000 ML IV SCH (19:30)
--- NOTE | 2023-02-24 19:33 | ED General ---
General Chief Complaint: General Problems/Pain Stated Complaint: FLU/COVID SYMPTOMS Source of Information: Patient Exam Limitations: No Limitations History of Present Illness Date Seen by Provider: Feb 24, 2023 Time Seen by Provider: 19:23 Initial Comments 77-year-old female presents to the emergency department today for nausea vomiti ng and generally feeling weak. She also has periods of dizziness. She was seen in the walk-in clinic today and told them that she had had some episodes of chest pain as well which was the reason for her visit to the emergency department. Overall she started feeling ill on Friday. She states in the morning she was dizzy and vomiting. She started to feel slightly better through the day and went on about her day. The same thing happened on Friday and then symptoms got worse today. She has had episodes of chest pain which she describes as sharp and stabbing lasting about 2 hours at a time and mostly in the mornings however today it happened this afternoon. There is no obvious aggravating or alleviating factors. No associated symptoms to include shortness of breath. Emesis is nonbloody and nonbilious. Her is at home with a vomiting type illness that started over the weekend as well. All other systems reviewed and negative except documented per HPI. Voice recognition software was used to help create this chart Allergies and Home Medications Allergies Coded Allergies: No Known Drug Allergies (Unverified , 05/16/20) Patient Home Medication List Home Medication List Reviewed: Yes Acetaminophen (Tylenol Extra Strength) 500 Mg Tablet, 1,000 MG PO Q6H PRN for PAIN-MILD (1-4), (Reported) Entered as Reported by: DAVID LIEBERMAN on 05/17/20 1424 Lisinopril (Lisinopril) 5 Mg Tablet, 5 MG PO DAILY, (Reported) Entered as Reported by: DAVID LIEBERMAN on 05/17/20 1422 Multivitamin (Multivitamin) 1 Each Tablet, 1 EACH PO, (Reported) Entered as Reported by: GARRICK KENNEDY on 05/15/22 1128 Simvastatin (Simvastatin) 40 Mg Tablet, 40 MG PO HS, (Reported) Entered as Reported by: DAVID LIEBERMAN on 05/17/20 1422 Review of Systems Review of Systems Constitutional: see HPI Past Dkntmto-Dwqjas-Bjxren Hx Patient Social History Tobacco Use?: No Use of E-Cig and/or Vaping dev: No Substance use?: No Alcohol Use?: No Immunizations Up To Date Influenza Vaccine Up-to-Date: No; Not Current First/Initial COVID19 Vaccinat: YES Second COVID19 Vaccination Fernando: YES Third COVID19 Vaccination Date: 2ND BOOSTER Seasonal Allergies Seasonal Allergies: No Past Medical History Surgeries: No Respiratory: No Cardiac: Yes High Cholesterol, Hypertension Neurological: No Genitourinary: No Gastrointestinal: No Musculoskeletal: No Endocrine: No HEENT: Yes (GLASSES) Cancer: No Psychosocial: No Integumentary: No Blood Disorders: No Family Medical History FH: colon cancer No Pertinent Family Hx Physical Exam Vital Signs Vital Signs - First Documented 02/24/23 19:20 Pulse 68 Resp 18 B/P (MAP) 175/86 (115) Pulse Ox 96 O2 Delivery Room Air Capillary Refill : Less Than 3 Seconds Height, Weight, BMI Height: '" Weight: lbs. oz. kg; 25.13 BMI Method: General Appearance: No Apparent Distress, WD/WN Eyes: Bilateral Eye Normal Inspection, Bilateral Eye PERRL, Bilateral Eye EOMI HEENT: Normal ENT Inspection, Pharynx Normal Neck: Full Range of Motion, Normal Inspection, Non Tender, Supple Respiratory: Chest Non Tender, Lungs Clear, Normal Breath Sounds, No Accessory Muscle Use, No Respiratory Distress Cardiovascular: Regular Rate, Rhythm, No Murmur, Normal Peripheral Pulses Gastrointestinal: Normal Bowel Sounds, No Organomegaly, Non Tender, Soft Extremity: Normal Capillary Refill, Normal Inspection, Normal Range of Motion Neurologic/Psychiatric: Alert, Oriented x3, No Motor/Sensory Deficits, Normal Mood/Affect Skin: Normal Color, Warm/Dry Progress/Results/Core Measures Suspected Sepsis SIRS Temperature: Pulse: Respiratory Rate: Laboratory Tests 02/24/23 19:25: White Blood Count 7.0 Blood Pressure / Mean: Laboratory Tests 02/24/23 19:25: Creatinine 0.91, Platelet Count 213, Total Bilirubin 1.4H Results/Orders Lab Results Laboratory Tests Test 02/24/23 19:25 02/24/23 19:32 Range/Units White Blood Count 7.0 4.3-11.0 10^3/uL Red Blood Count 4.74 3.80-5.11 10^6/uL Hemoglobin 14.0 11.5-16.0 g/dL Hematocrit 42 35-52 % Mean Corpuscular Volume 89 80-99 fL Mean Corpuscular Hemoglobin 30 25-34 pg Mean Corpuscular Hemoglobin Concent 33 32-36 g/dL Red Cell Distribution Width 13.8 10.0-14.5 % Platelet Count 213 130-400 10^3/uL Mean Platelet Volume 11.1 9.0-12.2 fL Immature Granulocyte % (Auto) 0 % Neutrophils (%) (Auto) 62 42-75 % Lymphocytes (%) (Auto) 32 12-44 % Monocytes (%) (Auto) 5 0-12 % Eosinophils (%) (Auto) 1 0-10 % Basophils (%) (Auto) 1 0-10 % Neutrophils # (Auto) 4.3 1.8-7.8 10^3/uL Lymphocytes # (Auto) 2.2 1.0-4.0 10^3/uL Monocytes # (Auto) 0.3 0.0-1.0 10^3/uL Eosinophils # (Auto) 0.1 0.0-0.3 10^3/uL Basophils # (Auto) 0.1 0.0-0.1 10^3/uL Immature Granulocyte # (Auto) 0.0 0.0-0.1 10^3/uL Sodium Level 140 135-145 MMOL/L Potassium Level 4.1 3.6-5.0 MMOL/L Chloride Level 105 98-107 MMOL/L Carbon Dioxide Level 25 21-32 MMOL/L Anion Gap 10 5-14 MMOL/L Blood Urea Nitrogen 18 7-18 MG/DL Creatinine 0.91 0.60-1.30 MG/DL Estimat Glomerular Filtration Rate 65 BUN/Creatinine Ratio 20 Glucose Level 113 H 70-105 MG/DL Calcium Level 9.6 8.5-10.1 MG/DL Corrected Calcium 9.2 8.5-10.1 MG/DL Magnesium Level 2.3 1.6-2.4 MG/DL Total Bilirubin 1.4 H 0.1-1.0 MG/DL Aspartate Amino Transf (AST/SGOT) 22 5-34 U/L Alanine Aminotransferase (ALT/SGPT) 13 0-55 U/L Alkaline Phosphatase 61 40-136 U/L Troponin I < 0.30 <0.30 NG/ML Total Protein 7.5 6.4-8.2 GM/DL Albumin 4.5 3.2-4.5 GM/DL Influenza Type A (RT-PCR) Not Detected Not Detecte Influenza Type B (RT-PCR) Not Detected Not Detecte SARS-CoV-2 RNA (RT-PCR) Not Detected Not Detecte My Orders Orders - DION,AGUSTIN L DO Cbc And Automated Diff (02/24/23 19:29) Magnesium (02/24/23 19:29) Chest 1 View Ap/Pa Only (02/24/23 19:29) Ekg Tracing (02/24/23 19:29) Comprehensive Metabolic Panel (02/24/23 19:29) Aspirin Chewable Tablet (Aspirin Chewabl (02/24/23 19:30) Ed Iv/Invasive Line Start (02/24/23 19:29) Troponin I Fs (02/24/23 19:29) Ns Iv 1000 Ml (Ns Iv 1000 Ml) (02/24/23 19:30) Ondansetron Injection (Ondansetron Inj (02/24/23 19:30) Covid 19 Inhouse Test (02/24/23 19:30) Influenza A And B By Pcr (02/24/23 19:30) Medications Given in ED Current Medications Medications Dose Ordered Sig/Wilfred Route Start Time Stop Time Status Last Admin Dose Admin Aspirin 324 mg ONCE ONCE PO 02/24/23 19:30 02/24/23 19:31 DC 02/24/23 19:42 324 MG Ondansetron HCl 4 mg ONCE ONCE IVP 02/24/23 19:30 02/24/23 19:31 DC 02/24/23 19:42 4 MG Vital Signs/I&O 02/24/23 02/24/23 19:20 19:20 Pulse 68 Resp 18 B/P (MAP) 175/86 (115) Pulse Ox 96 O2 Delivery Room Air Room Air Capillary Refill : Less Than 3 Seconds ECG Comment Sinus rhythm. Rate of 63 bpm. Normal intervals. Left axis deviation. No ST or T wave abnormalities. No ectopy. No STEMI. Departure Communication (Admissions) Patient is hemodynamically stable. Symptoms most consistent with viral gastric illness, likely catching it from her with similar symptoms however with her chest pain we went ahead and pursued work-up. Her CBC is unremarkable as is her chemistry. Troponin is negative and EKG is nonischemic. Chest x-ray is normal without any acute cardiopulmonary abnormality. Her symptoms are improved after IV Zofran and IV fluids. She is discharged home with Zofran in stable condition. Impression Primary Impression: Nausea and vomiting Qualified Codes: R11.2 - Nausea with vomiting, unspecified Disposition: 01 HOME, SELF-CARE Condition: Stable Departure-Patient Inst. Referrals: VERA MCNEAL MD (PCP/Family) Primary Care Physician Patient Instructions: Nausea and Vomiting, Adult (DC) Add. Discharge Instructions: Increase your fluids at home but taking small sips of fluids every 15 to 20 minutes. Use Zofran by dissolving under your tongue as needed every 6 hours. Return to the emergency department for any severe concerns. Follow with your primary doctor for any nonemergent needs. All discharge instructions reviewed with patient and/or family. Voiced understanding. Scripts Ondansetron (Ondansetron Odt) 8 Mg Tab.rapdis 8 MG SL Q6H PRN for NAUSEA/VOMITING for 3 Days, #12 TAB Prov: AGUSTIN ASHLEY DO 02/24/23 AGUSTIN ASHLEY DO Feb 24, 2023 19:33
[2023-02-24 19:35] LABS: BASOPHILS # (AUTO) 0.1 10^3/uL (0.0-0.1); BASOPHILS % (AUTO) 1 % (0-10); EOSINOPHILS # (AUTO) 0.1 10^3/uL (0.0-0.3); EOSINOPHILS % (AUTO) 1 % (0-10); HEMATOCRIT 42 % (35-52); LYMPHOCYTES # (AUTO) 2.2 10^3/uL (1.0-4.0); LYMPHOCYTES % (AUTO) 32 % (12-44); MEAN CORPUSCULAR HEMOGLOBIN 30 pg (25-34); MEAN CORPUSCULAR HGB CONC 33 g/dL (32-36); MEAN CORPUSCULAR VOLUME 89 fL (80-99); MEAN PLATELET VOLUME 11.1 fL (9.0-12.2); MONOCYTES # (AUTO) 0.3 10^3/uL (0.0-1.0); MONOCYTES % (AUTO) 5 % (0-12); NEUTROPHILS # (AUTO) 4.3 10^3/uL (1.8-7.8); NEUTROPHILS % (AUTO) 62 % (42-75); PLATELET COUNT 213 10^3/uL (130-400)
--- NOTE | 2023-02-24 19:46 | Diagnostic Imaging Report ---
EXAMINATION: Chest 1 view HISTORY: Chest pain COMPARISON: 05/16/2020 FINDINGS: Heart size and pulmonary vasculature are normal. The lungs are clear without consolidation, pleural effusion, or pneumothorax. The osseous structures are intact. IMPRESSION: 1. No acute radiographic abnormality in the chest. Dictated by: Dictated on workstation # [id number]
[2023-02-24 19:54] LABS: BILIRUBIN,TOTAL 1.4 MG/DL (0.1-1.0); CALCIUM 9.6 MG/DL (8.5-10.1); CARBON DIOXIDE 25 MMOL/L (21-32); CHLORIDE 105 MMOL/L (98-107); GLUCOSE 113 MG/DL (70-105); MAGNESIUM 2.3 MG/DL (1.6-2.4); POTASSIUM 4.1 MMOL/L (3.6-5.0); SODIUM 140 MMOL/L (135-145)
[2023-02-24 19:55] LABS: TOTAL PROTEIN 7.5 GM/DL (6.4-8.2)
[2023-02-24 19:58] LABS: ALANINE AMINOTRANSFERASE 13 U/L (0-55); ALBUMIN 4.5 GM/DL (3.2-4.5); ALKALINE PHOSPHATASE 61 U/L (40-136); BUN/CREATININE RATIO 20; CREATININE SERUM 0.91 MG/DL (0.60-1.30); GFR ESTIMATED 65
[2023-02-24] MEDS ORDERED: ONDA8TAB13 SL (20:03)
[2023-02-24 20:08] VITALS: BP 172/74
== END 2023-02-24 20:08 | disposition home or self-care (01) ==
LOC: EDUNIT# 19:16 → ER FS 19:17
DX: R11.2 Nausea with vomiting, unspecified (principal)
CPT/HCPCS: 36415; 71045; 80053; 83735; 84484; 85025; 87636; 93005; 96374